=== PATIENT | male | born 1955 | race Two or more races ===

== ENCOUNTER 2024-10-28 05:42 | Day surgery (SDC) | payer OTHER ==
[2024-10-22 10:47] VITALS: BP 136/81
[2024-10-22 10:59] LABS: BASO % 0.4 % (0.1-1.2); EOS # 0.11 (0.04-0.54); EOS % 2.2 % (0.7-7.0); LYMPH # 1.90 (1.18-3.74); LYMPH % 38.8 % (19.3-53.1); MEAN PLATELET VOLUME 10.40 fl (9.4-12.4); MONO # 0.64 (0.24-0.82); NEUT # 2.22 (1.56-6.13); NEUT % 45.3 % (34.0-71.1); RED CELL DISTRIBUTION WIDTH 12.8 % (11.6-14.4)
[2024-10-22 11:09] LABS: MONO % 13.1 % (4.7-12.5)
[2024-10-22 11:24] LABS: INR 1.07
[2024-10-22 11:31] LABS: ALT/SGPT 34.0 U/L (12-78); AST/SGOT 18.0 U/L (15-37); BILIRUBIN TOTAL 1.29 mg/dL (0.3-1.2); BUN CREA RATIO 18.0 (7.0-25.0); CREATININE SERUM 0.74 mg/dL (0.70-1.30); GFR 104.56; GLOBULINA 3.2 G/DL (2.4-3.5); GLUCOSE FASTING 160.0 mg/dL (65-100); OSMOLALITY SERUM 287.0 MOSM/KG (275-295)
[~2024-10-28] VITALS: Ht 177.8 cm; Wt 73.5 kg
[~2024-10-28 05:42] MED LIST: JARDIANCE10 MG PO
== END 2024-10-28 16:45 | disposition home or self-care (01) ==
LOC: CIR.AMB 05:42
PROVIDERS: ATTEND Internal Medicine
DX: K31.7 Polyp of stomach and duodenum (principal); K44.9 Diaphragmatic hernia without obstruction or gangrene

== ENCOUNTER 2025-02-07 07:00 | Day surgery (SDC) | payer OTHER ==
[2025-02-01 09:23] VITALS: BP 139/87
[2025-02-01 09:59] LABS: BASO % 0.4 % (0.1-1.2); EOS # 0.13 (0.04-0.54); EOS % 2.5 % (0.7-7.0); LYMPH # 2.04 (1.18-3.74); LYMPH % 39.6 % (19.3-53.1); MEAN PLATELET VOLUME 10.60 fl (9.4-12.4); MONO # 0.64 (0.24-0.82); NEUT # 2.31 (1.56-6.13); NEUT % 44.9 % (34.0-71.1); RED CELL DISTRIBUTION WIDTH 12.8 % (11.6-14.4)
[2025-02-01 10:05] LABS: MONO % 12.4 % (4.7-12.5)
[2025-02-01 10:27] LABS: INR 1.04
[2025-02-01 10:46] LABS: ALT/SGPT 51.0 U/L (12-78); AST/SGOT 26.0 U/L (15-37); BILIRUBIN TOTAL 0.76 mg/dL (0.3-1.2); BUN CREA RATIO 17.0 (7.0-25.0); CREATININE SERUM 0.81 mg/dL (0.70-1.30); GFR 94.21; GLOBULINA 3.3 G/DL (2.4-3.5); OSMOLALITY SERUM 289.0 MOSM/KG (275-295)
[2025-02-01 10:48] LABS: GLUCOSE FASTING 232.0 mg/dL (65-100)
[~2025-02-07] VITALS: Ht 177.8 cm; Wt 73.5 kg
[~2025-02-07 07:00] MED LIST changes: +HUMALOG100 UNIT/2
[2025-02-07] MEDS ORDERED: SUGAMMADEX SODIUM 200 MG/2 ML VIAL IV ONE (12:07)
== END 2025-02-07 15:35 | disposition home or self-care (01) ==
LOC: AMB-ENDOS 07:00 → CIR.AMB 11:00 → AMB-ENDOS 15:35
PROVIDERS: ATTEND Internal Medicine
DX: K31.7 Polyp of stomach and duodenum (principal); K31.89 Other diseases of stomach and duodenum